=== PATIENT | male | born 1965 | race Caucasian/White ===

== ENCOUNTER 2017-12-09 07:45 | Day surgery (SDC) | payer MEDICARE ==
[~2017-12-09] VITALS: Ht 170.2 cm; Wt 60.6 kg
[2017-12-09] MEDS ORDERED: albumin (human) 25% 100 ML IV solution IV PRN (08:05)
[2017-12-09] MEDS ORDERED: normal saline 1000ml 1,000 ML IV PRN (08:05)
[2017-12-09] MEDS ORDERED: LIDOcaine 1% 30ml preserv. free vial SQ STA (08:26)
[2017-12-09] MEDS ORDERED: OMEG1CAP PO (08:33)
[2017-12-09] MEDS ORDERED: LAMI1TAB40 PO (08:33)
[2017-12-09] MEDS ORDERED: TRAZ-143 PO (08:33)
[2017-12-09] MEDS ORDERED: METF500T PO (08:33)
[2017-12-09] MEDS ORDERED: ATOR10TA87 PO (08:33)
[2017-12-09] MEDS ORDERED: [UNRECOGNIZED DRUG - CODE] PO (08:33)
[2017-12-09 08:45] VITALS: BP 121/79
== END 2017-12-09 09:00 | disposition home or self-care (01) ==
LOC: SSTAY O 07:45
PROVIDERS: ATTEND Radiology Vascular & Interventional Radiology
DX: R18.8 Other ascites (principal); B19.20 Unspecified viral hepatitis C without hepatic coma; E11.9 Type 2 diabetes mellitus without complications; F31.9 Bipolar disorder, unspecified; F17.210 Nicotine dependence, cigarettes, uncomplicated; K21.9 Gastro-esophageal reflux disease without esophagitis; F10.21 Alcohol dependence, in remission; F15.11 Other stimulant abuse, in remission; Z90.89 Acquired absence of other organs; Z88.1 Allergy status to other antibiotic agents; Z79.4 Long term (current) use of insulin; Z88.2 Allergy status to sulfonamides; Z79.84 Long term (current) use of oral hypoglycemic drugs; Z79.891 Long term (current) use of opiate analgesic; Z79.899 Other long term (current) drug therapy
CPT/HCPCS: 76705; A6257; J7030